=== PATIENT | female | born 1965 | race Two or more races ===

== ENCOUNTER 2019-12-03 06:37 | Day surgery (SDC) | payer OTHER | END 2019-12-03 13:20 | disposition home or self-care (01) | LOC: CIR.AMB 06:37 | PROVIDERS: ATTEND Orthopaedic Surgery | DX: M75.122 Complete rotator cuff tear or rupture of left shoulder, not specified as traumatic (principal); M75.22 Bicipital tendinitis, left shoulder; Z20.828 Contact with and (suspected) exposure to other viral communicable diseases; M75.02 Adhesive capsulitis of left shoulder ==

== ENCOUNTER 2021-03-23 06:15 | Day surgery (SDC) | payer OTHER ==
[~2021-03-23 06:15] MED LIST: OMEGA 3 1,0001 EACH PO; VITAMIN C PO; ZINC PO
== END 2021-03-23 10:20 | disposition home or self-care (01) ==
LOC: CIR.AMB 06:15 → AMB-ENDOS 08:45 → CIR.AMB 08:45
PROVIDERS: ATTEND Orthopaedic Surgery
DX: M75.111 Incomplete rotator cuff tear or rupture of right shoulder, not specified as traumatic (principal); M75.21 Bicipital tendinitis, right shoulder; Z20.822 Contact with and (suspected) exposure to COVID-19